=== PATIENT | male | born 1995 | race Caucasian/White ===

== ENCOUNTER 2017-10-22 01:54 | Emergency (ER) | payer BC ==
[2017-10-22 01:57] VITALS: BP 95/46; PULSE 79; RESP 16; TEMP 98.6
[2017-10-22] MEDS ORDERED: SODIUM CHLOR 0.9% 1000 ML INJ 1,000 ML IV SCH (01:58)
[2017-10-22] MEDS ORDERED: NALOXONE HCL 2 MG/2 ML VIAL IV PUSH ONE (02:00)
[2017-10-22] MEDS ORDERED: SODIUM CHLORIDE 0.9% FLUSH 10 ML FLUSH IV FLUSH PRN (02:00)
[2017-10-22 02:21] VITALS: O2SAT 99
[2017-10-22 02:32] VITALS: BP 87/51; PULSE 76; RESP 16; O2SAT 98
[2017-10-22 03:25] LABS: AUTOMATED NEUTROPHIL # 5.9 TH/MM3 (1.8-7.7); BASOPHIL # 0.1 TH/MM3 (0-0.2); BASOPHIL % 0.6 % (0.0-2.0); EOSINOPHIL # 0.3 TH/MM3 (0-0.4); EOSINOPHIL % 2.3 % (0.0-4.0); HEMATOCRIT 40.6 % (39.0-51.0); HEMOGLOBIN 13.7 GM/DL (13.0-17.0); LYMPH % 37.8 % (9.0-44.0); LYMPHOCYTE # 4.3 TH/MM3 (1.0-4.8); MEAN CELL VOLUME 90.1 FL (80.0-100.0); MEAN CORPUSCULAR HEMOGLOBIN 30.4 PG (27.0-34.0); MEAN CORPUSCULAR HGB CONC 33.8 % (32.0-36.0); MONO % 7.7 % (0.0-8.0); MONOCYTE # 0.9 TH/MM3 (0-0.9); NEUT % 51.6 % (16.0-70.0); PLATELET COUNT 273 TH/MM3 (150-450); RED BLOOD COUNT 4.51 MIL/MM3 (4.50-5.90); RED CELL DISTRIBUTION WIDTH 13.2 % (11.6-17.2); WHITE BLOOD COUNT 11.5 TH/MM3 (4.0-11.0)
[2017-10-22 03:28] LABS: ALKALINE PHOSPHATASE 92 U/L (45-117); TOTAL BILIRUBIN ADULT 0.3 MG/DL (0.2-1.0); TOTAL PROTEIN 7.8 GM/DL (6.4-8.2)
[2017-10-22 03:29] VITALS: BP 86/47; PULSE 75; RESP 16; O2SAT 97
[2017-10-22 03:39] LABS: ALBUMIN 3.9 GM/DL (3.4-5.0); ALT (GPT) 20 U/L (9-52); AST (GOT) 38 U/L (15-39); BICARBONATE 22.5 MEQ/L (21.0-32.0); BLOOD UREA NITROGEN 13 MG/DL (7-18); CALCIUM 7.8 MG/DL (8.5-10.1); CHLORIDE 110 MEQ/L (98-107); CREATININE 1.14 MG/DL (0.60-1.30); GLOMERULAR FILTRATION RATE 82 ML/MIN (>89); GLUCOSE,RANDOM 106 MG/DL (74-106); SODIUM (NA) 144 MEQ/L (136-145)
[2017-10-22 03:40] LABS: ACETAMINOPHEN LESS THAN 2.0 MCG/ML (10.0-30.0)
[2017-10-22] MEDS ORDERED: ONDANSETRON HCL 4 MG/2 ML VIAL ONE (05:27)
[2017-10-22 05:29] VITALS: BP 100/78; PULSE 84; RESP 16; O2SAT 98
[2017-10-22 06:27] VITALS: BP 102/80; PULSE 74; RESP 16; O2SAT 98
--- NOTE | 2017-10-22 07:03 | PD ---
HPI Chief Complaint: Alcohol/Drug Intoxication Time Seen by Provider: 01:57 Travel History International Travel<30 days: No Contact w/Intl Traveler<30days: No Traveled to known affect area: No History of Present Illness HPI 22-year-old male arrives by private vehicle from private residence. The patient arrives with altered mental status. Friends are concerned for possible drug use. Unknown quantity of alcohol tonight. Additional history is limited due to intoxication. [facility] Social History Tobacco Use: No Allergies-Medications (Allergen,Severity, Reaction): Coded Allergies: No Allergy Information Available (Unverified , 10/22/17) Review of Systems General / Constitutional: No: Fever Eyes: No: Drainage HENT: No: Lightheadedness Cardiovascular: No: Chest Pain or Discomfort, Diaphoresis Respiratory: No: Sneezing Physical Exam Narrative GENERAL: 22-year-old male well-nourished well-developed alcohol on breath, vomitus about the shirt and stretcher Vital Signs Date Time Temp Pulse Resp B/P (MAP) Pulse Ox O2 Delivery O2 Flow Rate FiO2 10/22/17 06:27 74 16 102/80 (87) 98 Nasal Cannula 2.00 10/22/17 05:29 84 16 100/78 (85) 98 Room Air 10/22/17 03:29 75 16 86/47 (60) 97 Nasal Cannula 2.00 10/22/17 02:32 76 16 87/51 (63) 98 Nasal Cannula 2.00 10/22/17 02:21 99 Nasal Cannula 2.00 10/22/17 01:57 98.6 79 16 95/46 (62) SKIN: Warm and dry. HEAD: Atraumatic. Normocephalic. EYES: Pupils are pinpoint. Pupils are equal round reactive to light. ENT: No nasal bleeding or discharge. Mucous membranes pink and moist. NECK: Trachea midline. No JVD. CARDIOVASCULAR: Regular rate and rhythm. RESPIRATORY: No accessory muscle use. Clear to auscultation. Breath sounds equal bilaterally. GASTROINTESTINAL: Abdomen soft, non-tender, nondistended. Hepatic and splenic margins not palpable. MUSCULOSKELETAL: Extremities without clubbing, cyanosis, or edema. No obvious deformities. NEUROLOGICAL: Awake and alert. Moving all extremities. Pupils equal round reactive to light. PSYCHIATRIC: Appropriate mood and affect; insight and judgment normal. Data Data Last Documented VS Vital Signs Date Time Temp Pulse Resp B/P (MAP) Pulse Ox O2 Delivery O2 Flow Rate FiO2 10/22/17 06:27 74 16 102/80 (87) 98 Nasal Cannula 2.00 10/22/17 01:57 98.6 Orders Orders Electrocardiogram (10/22/17 01:58) Complete Blood Count With Diff (10/22/17 01:58) Comprehensive Metabolic Panel (10/22/17 01:58) Blood Glucose (10/22/17 01:58) Ecg Monitoring (10/22/17 01:58) Iv Access Insert/Monitor (10/22/17 01:58) Oximetry (10/22/17 01:58) Naloxone Inj (Narcan Inj) (10/22/17 02:00) Sodium Chloride 0.9% Flush (Ns Flush) (10/22/17 02:00) Sodium Chlor 0.9% 1000 Ml Inj (Ns 1000 M (10/22/17 01:58) Drug Screen, Random Urine (10/22/17 01:58) Alcohol (Ethanol) (10/22/17 01:58) Tylenol (Acetaminophen) (10/22/17 01:58) Ondansetron Inj (Zofran Inj) (10/22/17 05:27) Labs Laboratory Tests Test 10/22/17 02:10 White Blood Count 11.5 TH/MM3 Red Blood Count 4.51 MIL/MM3 Hemoglobin 13.7 GM/DL Hematocrit 40.6 % Mean Corpuscular Volume 90.1 FL Mean Corpuscular Hemoglobin 30.4 PG Mean Corpuscular Hemoglobin Concent 33.8 % Red Cell Distribution Width 13.2 % Platelet Count 273 TH/MM3 Mean Platelet Volume 9.0 FL Neutrophils (%) (Auto) 51.6 % Lymphocytes (%) (Auto) 37.8 % Monocytes (%) (Auto) 7.7 % Eosinophils (%) (Auto) 2.3 % Basophils (%) (Auto) 0.6 % Neutrophils # (Auto) 5.9 TH/MM3 Lymphocytes # (Auto) 4.3 TH/MM3 Monocytes # (Auto) 0.9 TH/MM3 Eosinophils # (Auto) 0.3 TH/MM3 Basophils # (Auto) 0.1 TH/MM3 CBC Comment DIFF FINAL Differential Comment Blood Urea Nitrogen 13 MG/DL Creatinine 1.14 MG/DL Random Glucose 106 MG/DL Total Protein 7.8 GM/DL Albumin 3.9 GM/DL Calcium Level 7.8 MG/DL Alkaline Phosphatase 92 U/L Aspartate Amino Transf (AST/SGOT) 38 U/L Alanine Aminotransferase (ALT/SGPT) 20 U/L Total Bilirubin 0.3 MG/DL Sodium Level 144 MEQ/L Potassium Level 4.8 MEQ/L Chloride Level 110 MEQ/L Carbon Dioxide Level 22.5 MEQ/L Anion Gap 12 MEQ/L Estimat Glomerular Filtration Rate 82 ML/MIN Acetaminophen Level LESS THAN 2.0 MCG/ML Ethyl Alcohol Level 383 MG/DL [facility] Medical Decision Making Medical Screen Exam Complete: Yes Emergency Medical Condition: Yes Medical Record Reviewed: Yes Differential Diagnosis Alcohol defecation, opioid intoxication, benzodiazepine abuse, electrolyte imbalance Narrative Course CBC & BMP Diagram 10/22/17 02:10 Total Protein 7.8, Albumin 3.9, Calcium Level 7.8 L, Alkaline Phosphatase 92, Aspartate Amino Transf (AST/SGOT) 38, Alanine Aminotransferase (ALT/SGPT) 20, Total Bilirubin 0.3 Alcohol levels 383 Tylenol is 2.0 The patient received Narcan and the pupils which were about 1 mm increase to about half a centimeter. Patient will sleep it off in the ER until the city of clinical sobriety was achieved. d/w DOE [facility] Diagnosis Primary Impression: Alcohol intoxication Qualified Codes: F10.920 - Alcohol use, unspecified with intoxication, uncomplicated Med/Other Pt SpecificInfo: No Change to Meds Disposition: 01 DISCHARGE HOME Condition: Stable Hakeem Henriquez MD Oct 22, 2017 07:03
--- NOTE | 2017-10-22 14:21 | EKG ---
Date Performed: 10/22/2017 Time Performed: 02:04:54 PTAGE: 22 years EKG: Sinus rhythm MODERATE INTRAVENTRICULAR CONDUCTION DELAY BORDERLINE ECG NO PREVIOUS TRACING DOCTOR: Laine Kolb Interpretating Date/Time 10/22/2017 14:19:46
== END 2017-10-22 12:22 | disposition home or self-care (01) ==
LOC: NEPC 01:54
DX: F10.129 Alcohol abuse with intoxication, unspecified (principal); Y90.8 Blood alcohol level of 240 mg/100 ml or more; R94.31 Abnormal electrocardiogram [ECG] [EKG]
CPT/HCPCS: 80053; 80307; 85025; 93005; 96361; 96374; 99284; J2310; J2405; J7030